=== PATIENT | male | born 1955 | race Caucasian/White ===

== ENCOUNTER 2019-09-27 14:23 | Outpatient (CLI) | payer MEDICARE, BC | END 2019-09-27 23:59 | disposition home or self-care (01) | LOC: RAD 14:23 | PROVIDERS: ATTEND Radiology Radiation Oncology | DX: C01 Malignant neoplasm of base of tongue (principal); R13.12 Dysphagia, oropharyngeal phase; R49.0 Dysphonia; Z85.89 Personal history of malignant neoplasm of other organs and systems | CPT/HCPCS: 74230 ==

== ENCOUNTER 2019-11-15 14:16 | Outpatient (CLI) | payer MEDICARE, BC | END 2019-11-15 23:59 | disposition home or self-care (01) | LOC: RAD 14:16 | PROVIDERS: ATTEND Radiology Radiation Oncology | DX: R13.12 Dysphagia, oropharyngeal phase (principal); R49.0 Dysphonia; K21.9 Gastro-esophageal reflux disease without esophagitis; Z85.89 Personal history of malignant neoplasm of other organs and systems | CPT/HCPCS: 74230 ==

== ENCOUNTER 2025-10-09 10:51 | Day surgery (SDC) | payer BC ==
[2025-10-05 10:54] LABS: MEAN PLATELET VOLUME 8.2 FL (7.4-10.4); RED CELL DISTRIBUTION WIDTH 15.2 % (11.5-14.5)
[2025-10-05 11:06] LABS: APTT 27 SECONDS (22-32); INR 1.0 INR
[2025-10-05 11:12] LABS: CHOL/HDL RATIO 4.1 (0.00-4.99); CREATININE 1.94 MG/DL (0.60-1.10); LDL CHOLESTEROL 159 MG/DL (50-100); TOTAL CARBON DIOXIDE 29.5 MMOL/L (24-32); eGFR 34 ML/MIN
[~2025-10-09] VITALS: Ht 180.3 cm; Wt 98.2 kg
[2025-10-09] VITALS (9 sets, daily range): BP systolic 142–181; BP diastolic 82–100; PULSE 70–80; RESP 12–16; TEMP 98; O2SAT 92–98
[~2025-10-09 10:51] MED LIST: BRIM5DRO21 RIGHTEYE; VALS160T30 PO; [UNRECOGNIZED DRUG - REMARK] PO
--- NOTE | 2025-10-09 11:25 | ELECTROCARDIOGRAPH REPORT ---
[facility] Test Date: 2025-10-09 Test Time: 11:23:49 Pat Name: LAUREANO DURAN Department: [facility] Patient ID: 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 Reading MD: Dr. MANDA Lind Measurements Intervals [place] Rate: 76 P: 5 NM: 173 QRS: 12 QRSD: 97 T: 47 QT: 371 QTc: 418 Interpretive Statements Sinus rhythm Electronically Signed On 10-10-2025 13:09:[address] MANDA Lind Please click the below link to view image of tracing.
[2025-10-09] MEDS ORDERED: LIDOcaine 1% (10mg/ml) 2ml vial ONE (13:13)
[2025-10-09] MEDS ORDERED: heparin 1,000unit/ml 10ml vial 10 ML ONE (13:14)
[2025-10-09] MEDS ORDERED: midazolam 1 mg/ML 2ml injection ONE ×2 (13:14→14:14)
[2025-10-09] MEDS ORDERED: verapamil 2.5 mg/ml inj IV ONE (13:14)
[2025-10-09] MEDS ORDERED: fentaNYL/PF 50MCG/1 ML 2ML syringe ONE (13:14)
[2025-10-09] MEDS ORDERED: nitroGLYCERIN 500mcg/5mL D5W 5 ML IV ONE (13:15)
[2025-10-09] MEDS ORDERED: LIDOcaine 1% 30ml preserv. free vial ONE (14:11)
[2025-10-09] MEDS ORDERED: hydrALAZINE 20mg/ml inj. ONE (14:21)
--- NOTE | 2025-10-09 16:23 | CARDIAC CATH REPORT ---
Cardiac Cath Report Providers to CC CC: RIANA MORRISON MD Procedure Comments: 1. Left Heart Catheterization 2. Selective Coronary Angiography 3. Right Radial artery access 4. Right Femoral artery access 5. Right femoral artery angiography 6. Closure of femoral artery with Perclose x 1 7. Closure of radial artery with VascBand x 1 Brief History/Indications: 70yo man with HTN, HLD, recurrent chest pains and abnormal MPI referred for evaluation. Techniques: After informed consent was obtained, the patient was brought to the cardiac catheterization laboratory and prepped and draped in usual sterile fashion for left heart catheterization and other procedures mentioned above. The right wrist was anesthetized with 1% Lidocaine and the right radial artery accessed via the Seldinger technique after which a 6Fr sheath was placed. 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 The right groin was anesthetized with 1% Lidocaine and the femoral artery accessed via the Seldinger technique after which a 6Fr sheath was placed. Through this a JL4 was used to engage the left coronary artery, a JR4 to engage the right coronary artery and left ventricle. At the conclusion of the case the sheaths were removed and hemostasis obtained with a Vascband for the radial sheath and a Perclose device for the femoral sheath. Findings Findings: HEMODYNAMICS: LV: 177/1 mmHg LVEDP: 8 mmHg Ao: 177/104, MAP 141 mmHg CORONARY ARTERIES: Rt Dominant LMCA: Luminal Irregularities LAD: Luminal Irregularities D1: Small, <1mm vessel D2: Luminal Irregularities LCx: Luminal Irregularities OM1: Luminal Irregularities OM2: Luminal Irregularities RCA: Luminal Irregularities PDA: 30% Stenosis PL: Luminal Irregularities Results Results: 1. No significant obstructive CAD 2. RFA Access, closed with Perclose x 1 (Tortuous innominate artery). RECOMMENDATIONS: 1. Cont uptitration of max-tolerated GDMT TALHA MORRISON MD Oct 09, 2025 16:23
== END 2025-10-09 17:15 | disposition home or self-care (01) ==
LOC: SSTAY O 10:51
PROVIDERS: ATTEND Student in an Organized Health Care Education/Training Program
DX: R94.30 Abnormal result of cardiovascular function study, unspecified (principal); R07.2 Precordial pain; I25.10 Atherosclerotic heart disease of native coronary artery without angina pectoris; I10 Essential (primary) hypertension; E78.00 Pure hypercholesterolemia, unspecified; Z98.890 Other specified postprocedural states; Z79.899 Other long term (current) drug therapy; R79.1 Abnormal coagulation profile
CPT/HCPCS: 36415; 80048; 80061; 85025; 85610; 85730; 93005; 93458; 99152; C1760; J0360; J1644; J2003; J2250; J3010; J3490; J7030; Q0163; Q9967; 99153; A6258; A6402; A6449; C1894